=== PATIENT | male | born 1975 | race Caucasian/White ===

== ENCOUNTER 2018-03-22 09:40 | Emergency (ER) | payer OTHER ==
[~2018-03-22] VITALS: Ht 175.3 cm; Wt 89.4 kg
[~2018-03-22 09:40] MED LIST: AUGMENTIN 875-1 EACH PO; LEVSIN-SL0.125 MG SL; ULTRAM50 M1 PO
--- NOTE | 2018-03-22 11:37 | ED GENERAL ADULT ---
See Addendum History of Present Illness General Chief Complaint: Abdominal Pain/Flank Pain Stated Complaint: +NVD DIVERTICULTIS FLARE UP? Source: patient, family Exam Limitations: no limitations Vital Signs & Intake/Output Vital Signs & Intake/Output Vital Signs Date Time Temp Pulse Resp B/P B/P Pulse O2 O2 Flow FiO2 Mean Ox Delivery Rate 03/22 1602 98.1 66 18 124/79 97 Room Air 03/22 1359 97.6 62 20 126/74 99 Room Air 03/22 1143 96.2 57 18 123/83 97 Room Air 03/22 0944 96.5 64 20 120/82 98 Room Air Allergies Coded Allergies: No Known Allergies (04/01/16) Reconcile Medications Amoxicillin/Potassium Clav (Augmentin 875-125 Tablet) 1 EACH TABLET 1 TAB PO BID diverticulitis Hyoscyamine Sulfate (Levsin-Sl) 0.125 MG TAB.SUBL 1-2 TAB SL Q4P PRN abd pain Tramadol HCl (Ultram) 50 MG TABLET 1-2 TAB PO Q6PRN PRN severe pain Triage Note: PT TO ED C/O LLQ ABD PAIN SINCE 0500 THIS AM. H/O DIVERTICULITIS, STATES IT FEELS THE SAME. C/O N/V/D. SWEATY, PALE, LETHARGIC PER FAMILY. STATES HE ALMOST PASSED OUT ON THE TOILET. Triage Nurses Notes Reviewed? yes Onset: Abrupt Duration: hour(s): Timing: ongoing Injury Environment: home Severity: moderate No Modifying Factors: none HPI: This is a 43-year-old male with a history of blood pressure and diverticulitis who presents the emergency department with several hours of left lower quadrant abdominal pain associated with nausea, vomiting, diarrhea. He states that this feels similar to prior episodes of diverticulitis. He states that while home, he felt some diaphoresis and subjective fever. Upon arrival, he is hemodynamically normal and stable, with focal tenderness to palpation to the left lower quadrant. Non-peritoneal, no rebound. He has no urinary or symptoms. Past History Travel History Traveled to [place] past 21 day No Medical History Any Pertinent Medical History? see below for history Cardiovascular: hypertension Gastrointestinal: diverticulitis Surgical History Surgical History: non-contributory Psychosocial History What is your primary language Russian Tobacco Use: Current Daily Use Daily Tobacco Use Amount/Type: => 5 Cigarettes daily ETOH Use: denies use Illicit Drug Use: denies illicit drug use Family History Hx Contributory? No Review of Systems Review of Systems Constitutional: Reports: diaphoresis, fever, malaise, weakness. EENTM: Reports: no symptoms. Respiratory: Reports: no symptoms. Cardiovascular: Reports: no symptoms. GI: Reports: abdominal pain, diarrhea, nausea, vomiting. Genitourinary: Reports: no symptoms. Musculoskeletal: Reports: no symptoms. Skin: Reports: no symptoms. Neurological/Psychological: Reports: no symptoms. Hematologic/Endocrine: Reports: no symptoms. Immunologic/Allergic: Reports: no symptoms. Physical Exam Physical Exam General Appearance: well developed/nourished, no apparent distress, comfortable Head: atraumatic, normal appearance Eyes: Right: normal appearance. Ears, Nose, Throat: normal pharynx, normal ENT inspection Neck: normal inspection, supple Respiratory: normal breath sounds, chest non-tender, no respiratory distress Cardiovascular: regular rate/rhythm Gastrointestinal: normal bowel sounds, soft, tenderness (LLQ) Rectal: deferred Back: normal inspection, normal range of motion Extremities: normal inspection, normal range of motion Neurologic/Psych: no motor/sensory deficits, alert, oriented x 3 Core Measures ACS in differential dx? No CVA/TIA Diagnosis: No Sepsis Present: No Sepsis Focused Exam Completed? No Progress Differential Diagnoses I considered the following diagnoses in my evaluation of the patient: Diverticulitis, gastroenteritis, abscess, perforation, low suspicion for appendicitis. Doubt acute cardiac process. Low suspicion for UTI/ pyelonephritis/nephrolithiasis. EXAM TYPE: CAT - CT ABD & PELVIS W IV CONTRAST EXAMINATION: CT ABDOMEN AND PELVIS WITH CONTRAST CLINICAL INFORMATION: Left lower quadrant abdominal pain. History of same. Nausea, vomiting, diarrhea. Presumptive diagnosis of diverticulitis. COMPARISON: CT scan of the abdomen and pelvis dated 04/01/2016. TECHNIQUE: Multidetector CT volumetric acquisition of the abdomen and pelvis was performed after the administration of 90 mL of intravenous Optiray 320. The data set was reformatted in the sagittal and coronal planes and reviewed on an independent workstation. DLP: 365.5 to mGy-cm. FINDINGS: LOWER CHEST: Mild dependent atelectatic changes are seen. LIVER, GALLBLADDER, BILIARY TREE: Liver normal size and attenuation. No focal cystic or solid mass or intra-or extrahepatic ductal dilatation. Hepatic and portal veins patent. Gallbladder partially distended and within normal limits. PANCREAS: Normal. No ductal dilatation, mass, or surrounding stranding. SPLEEN: 1.2 cm accessory splenule is seen in the splenic hilar region, unchanged. Normal size and appearance. Splenic vein patent. ADRENAL GLANDS AND KIDNEYS: Adrenal glands normal. Kidneys bilaterally symmetric in size and function. No focal mass, hydronephrosis, nephrolithiasis or perinephric stranding. URETERS AND BLADDER: Ureters decompressed and within normal limits. Bladder decompressed and therefore not adequately assessed. There is a diffusely thick-walled appearance of the bladder with irregular margins, consistent with the decompressed state of the bladder. No definite bladder calculi seen. There is some mild perivesical fat stranding seen, extending from the adjacent sigmoid colon, likely representing reactive changes. PELVIC ORGANS: Unremarkable. GASTROINTESTINAL TRACT: Again seen is diffuse segmental thickening of the sigmoid colon with scattered colonic diverticula. There is mild pericolonic fat stranding and edema seen and findings are consistent with recurrent acute diverticulitis. As seen previously, there is a 1.9 x 2.2 cm interloop peripherally rim-enhancing fluid collection with surrounding mild retractile change, suspicious for an interloop abscess. When compared to the prior study from 2016, identical findings were seen. The stranding from the sigmoid colon extends to the perivesical fat. Small and large bowel loops are otherwise unremarkable and decompressed. Appendix in right lower quadrant normal. ABDOMINAL WALL: Small fat-containing umbilical hernia is seen, unchanged. LYMPHOVASCULAR STRUCTURES: Abdominal aorta normal in caliber. No periaortic collections. No abdominal or pelvic adenopathy or free fluid collection. BONES: Moderate degenerative disc disease is seen at the lumbosacral junction. Bony structures are otherwise unremarkable. IMPRESSION: 1. Above findings are suspicious for recurrent sigmoid colonic diverticulitis with small interloop abscess and inflammation extending to the perivesical fat. Similar findings were noted in 2016. Close clinical correlation is requested along with follow-up CT scan post treatment to document resolution of findings and exclude underlying malignancy. 2. Small fat-containing umbilical hernia. Plan of Care: Orders Procedure Date/time Status URINALYSIS 03/22 1132 Complete LIPASE 03/22 1132 Complete COMPREHENSIVE METABOLIC PANEL 03/22 1132 Complete CBC WITHOUT DIFFERENTIAL 03/22 1132 Complete Laboratory Tests 03/22/18 1130: Anion Gap 12, Estimated GFR > 60, BUN/Creatinine Ratio 26.7 H, Glucose 102 H, Calcium 9.3, Total Bilirubin 0.6, AST 17, ALT 24, Alkaline Phosphatase 94, Total Protein 7.4, Albumin 4.2, Globulin 3.2, Albumin/Globulin Ratio 1.3, Lipase 44, CBC w Diff MAN DIFF ORDERED, RBC 5.12, MCV 88.2, MCH 30.1, MCHC 34.2, RDW 14.0, MPV 7.6, Gran % 94.6 H, Lymphocytes % 4.1 L, Monocytes % 0.8 L, Eosinophils % 0.1, Basophils % 0.4, Absolute Granulocytes 15.4 H, Absolute Lymphocytes 0.7 L , Absolute Monocytes 0.1, Absolute Eosinophils 0, Absolute Basophils 0.1, Platelet Estimate ADEQUATE, Normocytic RBCs VERIFIED, Normochromic RBCs VERIFIED , Urine Color YEL, Urine Clarity HAZY H, Urine pH 6.0, Ur Specific [place] >= 1.030, Urine Protein NEG, Urine Ketones NEG, Urine Nitrite NEG, Urine Bilirubin NEG, Urine Urobilinogen 0.2, Ur Leukocyte Esterase NEG, Ur Microscopic SEDIMENT EXAMINED, Urine RBC RARE, Urine WBC RARE, Ur Epithelial Cells RARE, Urine Bacteria FEW H, Hyaline Casts RARE H, Micro UA Comment MORE INFO: H, Urine Hemoglobin NEG, Urine Glucose NEG We will treat symptoms with ketorolac, Zofran, IV fluids, plan for CT abdomen pelvis and reassessment. Of note, patient was prescribed a full course of ciprofloxacin and metronidazole by his GI doctor. He felt ill and decided to come to the emergency department prior to starting the course of p.o. antibiotics. Initial ED EKG: none Departure Departure Disposition: HOME OR SELF CARE Condition: Stable Clinical Impression Primary Impression: Diverticulitis large intestine Qualifiers: Diverticulitis bleeding: without bleeding Diverticulitis complication: with abscess Qualified Code: K57.20 - Diverticulitis of large intestine with perforation and abscess without bleeding Referrals: Swathi YOUNG,Hemal Willard (PCP/Family) Additional Instructions: EXAM TYPE: CAT - CT ABD & PELVIS W IV CONTRAST EXAMINATION: CT ABDOMEN AND PELVIS WITH CONTRAST CLINICAL INFORMATION: Left lower quadrant abdominal pain. History of same. Nausea, vomiting, diarrhea. Presumptive diagnosis of diverticulitis. COMPARISON: CT scan of the abdomen and pelvis dated 04/01/2016. TECHNIQUE: Multidetector CT volumetric acquisition of the abdomen and pelvis was performed after the administration of 90 mL of intravenous Optiray 320. The data set was reformatted in the sagittal and coronal planes and reviewed on an independent workstation. DLP: 365.5 to mGy-cm. FINDINGS: LOWER CHEST: Mild dependent atelectatic changes are seen. LIVER, GALLBLADDER, BILIARY TREE: Liver normal size and attenuation. No focal cystic or solid mass or intra-or extrahepatic ductal dilatation. Hepatic and portal veins patent. Gallbladder partially distended and within normal limits. PANCREAS: Normal. No ductal dilatation, mass, or surrounding stranding. SPLEEN: 1.2 cm accessory splenule is seen in the splenic hilar region, unchanged. Normal size and appearance. Splenic vein patent. ADRENAL GLANDS AND KIDNEYS: Adrenal glands normal. Kidneys bilaterally symmetric in size and function. No focal mass, hydronephrosis, nephrolithiasis or perinephric stranding. URETERS AND BLADDER: Ureters decompressed and within normal limits. Bladder decompressed and therefore not adequately assessed. There is a diffusely thick-walled appearance of the bladder with irregular margins, consistent with the decompressed state of the bladder. No definite bladder calculi seen. There is some mild perivesical fat stranding seen, extending from the adjacent sigmoid colon, likely representing reactive changes. PELVIC ORGANS: Unremarkable. GASTROINTESTINAL TRACT: Again seen is diffuse segmental thickening of the sigmoid colon with scattered colonic diverticula. There is mild pericolonic fat stranding and edema seen and findings are consistent with recurrent acute diverticulitis. As seen previously, there is a 1.9 x 2.2 cm interloop peripherally rim-enhancing fluid collection with surrounding mild retractile change, suspicious for an interloop abscess. When compared to the prior study from 2016, identical findings were seen. The stranding from the sigmoid colon extends to the perivesical fat. Small and large bowel loops are otherwise unremarkable and decompressed. Appendix in right lower quadrant normal. ABDOMINAL WALL: Small fat-containing umbilical hernia is seen, unchanged. LYMPHOVASCULAR STRUCTURES: Abdominal aorta normal in caliber. No periaortic collections. No abdominal or pelvic adenopathy or free fluid collection. BONES: Moderate degenerative disc disease is seen at the lumbosacral junction. Bony structures are otherwise unremarkable. IMPRESSION: 1. Above findings are suspicious for recurrent sigmoid colonic diverticulitis with small interloop abscess and inflammation extending to the perivesical fat. Similar findings were noted in 2016. Close clinical correlation is requested along with follow-up CT scan post treatment to document resolution of findings and exclude underlying malignancy. 2. Small fat-containing umbilical hernia. Departure Forms: Customer Survey General Discharge Information Comments Please take the Flagyl and ciprofloxacin as prescribed by Dr. Briseon. Please follow-up with Dr. Briseno on Friday or Friday for reevaluation and possible surgical consultation. Please return to the emergency department if you developed difficulty in eating, drinking, or other symptoms such as fever, worsening abdominal pain, worsening diarrhea. Critical Care Note Critical Care Note Critical Care Time: non-applicable 2. Small fat-containing umbilical hernia. Departure Forms: Customer Survey General Discharge Information
[2018-03-22 11:56] LABS: ABSOLUTE BASOPHIL COUNT 0.1 /CUMM (0.0-0.2); ABSOLUTE EOSINOPHIL COUNT 0 /CUMM (0.0-0.7); ABSOLUTE GRANULOCYTE CT 15.4 /CUMM (1.4-6.5); ABSOLUTE LYMPH COUNT 0.7 /CUMM (1.2-3.4); ABSOLUTE MONOCYTE COUNT 0.1 /CUMM (0.10-0.60); BASOPHIL % 0.4 % (0.0-2.0); EOSINOPHIL % 0.1 % (0-5); GRANULOCYTE % 94.6 % (42.2-75.2); HEMATOCRIT 45.2 % (42-52); MEAN CORPUSCULAR HGB 30.1 PG (27.0-31.0); MEAN CORPUSCULAR HGB CONC 34.2 G/DL (33.0-37.0); MEAN CORPUSCULAR VOLUME 88.2 FL (80.0-94.0); MEAN PLATELET VOLUME 7.6 FL (7.4-10.4); PLATELET COUNT 295 /CUMM (130-400); RED BLOOD CELL CT 5.12 /CUMM (4.70-6.10); WHITE BLOOD CELL COUNT 16.2 /CUMM (4.8-10.8)
--- NOTE | 2018-03-22 13:44 | CT SCAN REPORT ---
EXAMINATION: CT ABDOMEN AND PELVIS WITH CONTRAST CLINICAL INFORMATION: Left lower quadrant abdominal pain. History of same. Nausea, vomiting, diarrhea. Presumptive diagnosis of diverticulitis. COMPARISON: CT scan of the abdomen and pelvis dated 04/01/2016. TECHNIQUE: Multidetector CT volumetric acquisition of the abdomen and pelvis was performed after the administration of 90 mL of intravenous Optiray 320. The data set was reformatted in the sagittal and coronal planes and reviewed on an independent workstation. DLP: 365.5 to mGy-cm. FINDINGS: LOWER CHEST: Mild dependent atelectatic changes are seen. LIVER, GALLBLADDER, BILIARY TREE: Liver normal size and attenuation. No focal cystic or solid mass or intra-or extrahepatic ductal dilatation. Hepatic and portal veins patent. Gallbladder partially distended and within normal limits. PANCREAS: Normal. No ductal dilatation, mass, or surrounding stranding. SPLEEN: 1.2 cm accessory splenule is seen in the splenic hilar region, unchanged. Normal size and appearance. Splenic vein patent. ADRENAL GLANDS AND KIDNEYS: Adrenal glands normal. Kidneys bilaterally symmetric in size and function. No focal mass, hydronephrosis, nephrolithiasis or perinephric stranding. URETERS AND BLADDER: Ureters decompressed and within normal limits. Bladder decompressed and therefore not adequately assessed. There is a diffusely thick-walled appearance of the bladder with irregular margins, consistent with the decompressed state of the bladder. No definite bladder calculi seen. There is some mild perivesical fat stranding seen, extending from the adjacent sigmoid colon, likely representing reactive changes. PELVIC ORGANS: Unremarkable. GASTROINTESTINAL TRACT: Again seen is diffuse segmental thickening of the sigmoid colon with scattered colonic diverticula. There is mild pericolonic fat stranding and edema seen and findings are consistent with recurrent acute diverticulitis. As seen previously, there is a 1.9 x 2.2 cm interloop peripherally rim-enhancing fluid collection with surrounding mild retractile change, suspicious for an interloop abscess. When compared to the prior study from 2016, identical findings were seen. The stranding from the sigmoid colon extends to the perivesical fat. Small and large bowel loops are otherwise unremarkable and decompressed. Appendix in right lower quadrant normal. ABDOMINAL WALL: Small fat-containing umbilical hernia is seen, unchanged. LYMPHOVASCULAR STRUCTURES: Abdominal aorta normal in caliber. No periaortic collections. No abdominal or pelvic adenopathy or free fluid collection. BONES: Moderate degenerative disc disease is seen at the lumbosacral junction. Bony structures are otherwise unremarkable. IMPRESSION: 1. Above findings are suspicious for recurrent sigmoid colonic diverticulitis with small interloop abscess and inflammation extending to the perivesical fat. Similar findings were noted in 2016. Close clinical correlation is requested along with follow-up CT scan post treatment to document resolution of findings and exclude underlying malignancy. 2. Small fat-containing umbilical hernia.
[2018-03-22 16:02] VITALS: BP 124/79
== END 2018-03-22 16:02 ==
LOC: ERH 09:40
PROVIDERS: Student in an Organized Health Care Education/Training Program
DX: K57.32 Diverticulitis of large intestine without perforation or abscess without bleeding (principal)
CPT/HCPCS: 74177; 81001; 96374; 96375; J0744; J1885; J2405; J7060